=== PATIENT | male | born 2000 | race African-American/Black ===

== ENCOUNTER 2022-01-09 09:11 | Emergency (ER) | payer MEDICAID ==
[~2022-01-09] VITALS: Ht 185.4 cm; Wt 122.0 kg
== END 2022-01-09 10:52 | disposition home or self-care (01) ==
LOC: ED 09:11
DX: M62.442 Contracture of muscle, left hand (principal); J45.909 Unspecified asthma, uncomplicated; Z88.0 Allergy status to penicillin
CPT/HCPCS: 99283